=== PATIENT | female | born 1985 | race Caucasian/White ===

== ENCOUNTER 2018-04-14 02:48 | Inpatient (IN) | payer MEDICAID, SELFPAY ==
[2018-04-13 07:08] VITALS: BMI 43.7
[2018-04-13] MEDS: Lactated Ringers 1,000 ML 50 ML IV ×3 (07:36→22:15)
[2018-04-13 07:48] LABS: Hematocrit 33.2 % (37-47); Hemoglobin 10.7 g/dl (12.0-15.0); Mean Corp Hgb Conc 32.2 g/gl (32-36); Mean Corpuscular Hgb 25.1 pg (27.0-32.0); Mean Corpuscular Volume 77.8 fL (81-99); Mean Platelet Vol. 10.9 fl (6.2-12.0); Platelet Count 188 K/mm3 (150-450); RBC Distribution Width CV 14.6 % (11.6-14.6); RBC Distribution Width SD 39.7 fl (35.1-43.9); Red Blood Count 4.27 M/mm3 (4.2-5.4); White Blood Count 8.4 K/mm3 (4.4-11.0)
[2018-04-13] MEDS: Oxytocin 30 units/NS 500 ml 30 UNITS/500 ML IV.SOLN IV (07:50)
[2018-04-13 08:00] LABS: Scan Indicated on CBC? Y/N NO
[2018-04-13] MEDS: CLARIFY ORDER NOTE (08:31)
[2018-04-13] MEDS: 0.9% Normal Saline 100 ML IV.SOLN. INTRA-UTER (08:50)
--- NOTE | 2018-04-13 08:58 | PCM.HP.OB ---
- Problem List (1) Obesity complicating Status: Acute (2) Hyperthyroidism during Status: Acute (3) History of depression Status: Acute (4) Tobacco use during Status: Acute (5) Drug use affecting in first trimester Status: Acute (6) Encounter for induction of labor Status: Acute (7) Post-dates Status: Acute History Date of Admission: 04/13/18 Final KRISTIN: 04/08/18 Final KRISTIN Source: US <20 weeks Gestational age: 40 Weeks and 5 Days History of this : This is a 32 year-old, G [2], P [1001], at 40 weeks 5 days gestational age by 1st trimester U/S. Here today for elective IOL, postdates. Presented this morning without any contractions, no complaints. Medical Hx: Marijuana use at beginning of , no further use and negative 3rd trimester urine tox screen Smoker,Stopped smoking beginning of Hyperthyroidism-medication discontinued by endocrinology in early . Allergies No Known Allergies Allergy (Verified 04/13/18 08:29) Home Medications: Home Medications Vits96/Iron Fum/Folic [ Tablet] 04/13/18 Smoking Status: Former smoker Alcohol: None Substance Use Type: Marijuana - Marijuana use in early , stopped once she found out she was . No further use. Number of Fetus(es): 1 Heart Tracin, moderate variability, accels, no decels, Category 1 TOCO Analysis: No contractions History Past Pregnancies: Past Pregnancies Delivery Date Name GA/Weeks Outcome Route Weight Infant Gender Labor Length Anesthesia Delivery Location Provider FOB Labs: HIV negative HBsAG negative RPR negative GC/CT negative Urine tox screen positive on 03/22/18 negative GBS negative Rubella Immune A positive, antibody screen negative Expected Delivery Method: Spontaneous Vaginal Review of Systems Constitutional: Denies: Chills, Fever, Weight Change HEENT: Denies: Head Aches, Sinus Congestion, Sinus Drainage Cardiovascular: Denies: Chest Pain Respiratory: Denies: Cough, Shortness of breath at rest, Sputum production Gastrointestinal: Denies: Abdominal Pain, Nausea, Vomiting Genitourinary: Denies: Dysuria Neurological: Denies: Numbness, Tingling, Focal weakness Psychiatric: Denies: Anxiety, Depression, Homicidal Ideations, Suicidal Ideations Physical Exam General: Alert, Oriented x3 HEENT: Atraumatic, Normocephalic Cardiovascular: Regular rate, Regular Rhythm, No murmurs Lungs: Clear to auscultation, Normal air movement, No rhonchi, No wheeze Abdomen: Gravid Extremities:: Other - Edema +1 BLE, non pitting. Consistent with Neurological: Deep Tendon Reflexes 2+/4 and Symmetrical. Negative for: Clonus CREDIT PROFESSIONAL: Normal external genitalia. Negative for: Vulvar lesions Estimated gestational size: Appropriate for gestational size Presentation: Cephalic Cervix Dilation (cm): 1 Station: -2 Effacement (%): 60 - Taveras catheter placed and 30ml of NS instilled. Patient tolerated well. Assessment/Plan All Active Problems Obesity complicating (Acute) Hyperthyroidism during (Acute) History of depression (Acute) Tobacco use during (Acute) Drug use affecting in first trimester (Acute) Encounter for induction of labor (Acute) Post-dates (Acute) This is a 32 year-old, G [2], P [1001], at 40 weeks 5 Days gestational age for post dates elective IOL A:Postdates Obesity P: 1) Admit to L&D, routine orders. Start IV and labs ordered 2) Urine tox screen and socially responsible investment adviser consult placed. No use since beginning of . 3) Taveras bulb with pitocin for IOL 4) collaborative physician, informed of patient status Lanette Hair APRN, IVANA
--- NOTE | 2018-04-13 09:02 | HP.PCM_ITS ---
- Problem List (1) Obesity complicating Status: Acute (2) Hyperthyroidism during Status: Acute (3) History of depression Status: Acute (4) Tobacco use during Status: Acute (5) Drug use affecting in first trimester Status: Acute (6) Encounter for induction of labor Status: Acute (7) Post-dates Status: Acute History Date of Admission: 04/13/18 Final KRISTIN: 04/08/18 Final KRISTIN Source: US <20 weeks Gestational age: 40 Weeks and 5 Days History of this : This is a 32 year-old, G [2], P [1001], at 40 weeks 5 days gestational age by 1st trimester U/S. Here today for elective IOL, postdates. Presented this morning without any contractions, no complaints. Medical Hx: Marijuana use at beginning of , no further use and negative 3rd trimester urine tox screen Smoker,Stopped smoking beginning of Hyperthyroidism-medication discontinued by endocrinology in early . Allergies No Known Allergies Allergy (Verified 04/13/18 08:29) Home Medications: Home Medications Vits96/Iron Fum/Folic [ Tablet] 04/13/18 Smoking Status: Former smoker Alcohol: None Substance Use Type: Marijuana - Marijuana use in early , stopped once she found out she was . No further use. Number of Fetus(es): 1 Heart Tracin, moderate variability, accels, no decels, Category 1 TOCO Analysis: No contractions History Past Pregnancies: Past Pregnancies Delivery Date Name GA/Weeks Outcome Route Weight Infant Gender Labor Length Anesthesia Delivery Location Provider FOB Labs: HIV negative HBsAG negative RPR negative GC/CT negative Urine tox screen positive on 03/22/18 negative GBS negative Rubella Immune A positive, antibody screen negative Expected Delivery Method: Spontaneous Vaginal Review of Systems Constitutional: Denies: Chills, Fever, Weight Change HEENT: Denies: Head Aches, Sinus Congestion, Sinus Drainage Cardiovascular: Denies: Chest Pain Respiratory: Denies: Cough, Shortness of breath at rest, Sputum production Gastrointestinal: Denies: Abdominal Pain, Nausea, Vomiting Genitourinary: Denies: Dysuria Neurological: Denies: Numbness, Tingling, Focal weakness Psychiatric: Denies: Anxiety, Depression, Homicidal Ideations, Suicidal Ideations Physical Exam General: Alert, Oriented x3 HEENT: Atraumatic, Normocephalic Cardiovascular: Regular rate, Regular Rhythm, No murmurs Lungs: Clear to auscultation, Normal air movement, No rhonchi, No wheeze Abdomen: Gravid Extremities:: Other - Edema +1 BLE, non pitting. Consistent with Neurological: Deep Tendon Reflexes 2+/4 and Symmetrical. Negative for: Clonus SOCKET WELDER HELPER: Normal external genitalia. Negative for: Vulvar lesions Estimated gestational size: Appropriate for gestational size Presentation: Cephalic Cervix Dilation (cm): 1 Station: -2 Effacement (%): 60 - Taveras catheter placed and 30ml of NS instilled. Patient tolerated well. Assessment/Plan All Active Problems Obesity complicating (Acute) Hyperthyroidism during (Acute) History of depression (Acute) Tobacco use during (Acute) Drug use affecting in first trimester (Acute) Encounter for induction of labor (Acute) Post-dates (Acute) This is a 32 year-old, G [2], P [1001], at 40 weeks 5 Days gestational age for post dates elective IOL A:Postdates Obesity P: 1) Admit to L&D, routine orders. Start IV and labs ordered 2) Urine tox screen and child welfare social worker consult placed. No use since beginning of . 3) Taveras bulb with pitocin for IOL 4) collaborative physician, informed of patient status Lanette Hair APRN, IVANA
[2018-04-13] MEDS: Acetaminophen 325 MG Tablet PO ×2 (12:37→17:34)
--- NOTE | 2018-04-13 12:38 | PCM.PN.OB ---
Patient Problems: Active and Suspected Problems Obesity complicating (Acute) Hyperthyroidism during (Acute) History of depression (Acute) Tobacco use during (Acute) Drug use affecting in first trimester (Acute) Encounter for induction of labor (Acute) Post-dates (Acute) Subjective: Doing well and breathing well with contractions. Family at bedside. Resting in bed. Objective: FHR 145, moderate variability, accels, occasional variable decels, non repetitive, Category 2 FHT TOCO: q3-5 minutes, irregular, mild to palpation Cervix 3/70%/-2 IBOW, vertex. - Physical Exam Weight: 296 lb Body Mass Index (BMI) 43.7 Laboratory Tests Past 24 Hrs 04/13/18 04/13/18 07:36 07:36 WBC 8.4 RBC 4.27 Hgb 10.7 L Hct 33.2 L MCV 77.8 L MCH 25.1 L MCHC 32.2 RDW 14.6 RDW Differential 39.7 Plt Count 188 MPV 10.9 Blood Type A POSITIVE Antibody Screen NEGATIVE Medical Necessity - Tobacco Use Smoking Status: Former smoker Assessment/Plan All Active Problems Obesity complicating (Acute) Hyperthyroidism during (Acute) History of depression (Acute) Tobacco use during (Acute) Drug use affecting in first trimester (Acute) Encounter for induction of labor (Acute) Post-dates (Acute) A: Postdates Elective IOL, progressing Category 2 FHT P: 1) Coping well with contractions, beginning to feel uncomfortable. Category 2 FHT, continue to monitor. 2) Abdominal lifting and walcher's technique done, patient tolerated well. Up to peanut ball then to hands and knees for next positional changes. 3) Continue with Pitocin induction. 4) notified of patient status.
--- NOTE | 2018-04-13 12:43 | PN.OBGYN_ITS ---
Patient Problems: Active and Suspected Problems Obesity complicating (Acute) Hyperthyroidism during (Acute) History of depression (Acute) Tobacco use during (Acute) Drug use affecting in first trimester (Acute) Encounter for induction of labor (Acute) Post-dates (Acute) Subjective: Doing well and breathing well with contractions. Family at bedside. Resting in bed. Objective: FHR 145, moderate variability, accels, occasional variable decels, non repe titive, Category 2 FHT TOCO: q3-5 minutes, irregular, mild to palpation Cervix 3/70%/-2 IBOW, vertex. - Physical Exam Weight: 296 lb Body Mass Index (BMI) 43.7 Laboratory Tests Past 24 Hrs 04/13/18 04/13/18 07:36 07:36 WBC 8.4 RBC 4.27 Hgb 10.7 L Hct 33.2 L MCV 77.8 L MCH 25.1 L MCHC 32.2 RDW 14.6 RDW Differential 39.7 Plt Count 188 MPV 10.9 Blood Type A POSITIVE Antibody Screen NEGATIVE Medical Necessity - Tobacco Use Smoking Status: Former smoker Assessment/Plan All Active Problems Obesity complicating (Acute) Hyperthyroidism during (Acute) History of depression (Acute) Tobacco use during (Acute) Drug use affecting in first trimester (Acute) Encounter for induction of labor (Acute) Post-dates (Acute) A: Postdates Elective IOL, progressing Category 2 FHT P: 1) Coping well with contractions, beginning to feel uncomfortable. Category 2 FHT, continue to monitor. 2) Abdominal lifting and walcher's technique done, patient tolerated well. Up to peanut ball then to hands and knees for next positional changes. 3) Continue with Pitocin induction. 4) notified of patient status.
[2018-04-13 13:07] LABS: Amphetamine Urine VISTA NEGATIVE (<1000 ng/mL); Barbiturate Urine VISTA NEGATIVE (< 200 ng/mL); Benzodiazepine Urine VISTA NEGATIVE (< 200 ng/mL); Cocaine Urine VISTA NEGATIVE (< 300 ng/mL); Ecstacy Urine VISTA NEGATIVE (< 500 ng/mL); Methadone Urine VISTA NEGATIVE (< 300 ng/mL); PCP Urine VISTA NEGATIVE (< 25 ng/mL); THC Urine VISTA NEGATIVE (< 50 ng/mL); Vista UDS pH Range 5
--- NOTE | 2018-04-13 17:44 | PCM.PN.OB ---
Patient Problems: Active and Suspected Problems Obesity complicating (Acute) Hyperthyroidism during (Acute) History of depression (Acute) Tobacco use during (Acute) Drug use affecting in first trimester (Acute) Encounter for induction of labor (Acute) Post-dates (Acute) Subjective: Resting in bed, comfortable. Contractions spacing out, irregular. Family at bedside. Objective: FHT 145, moderate variability, accels, no decels, Category 1 TOCO: Irregular contractions, mild-moderate palpation. Coping well. Contractions started spacing out about 3 hours ago. Were every 3 minutes and now irregular. - Physical Exam Weight: 296 lb Body Mass Index (BMI) 43.7 Laboratory Tests Past 24 Hrs 04/13/18 04/13/18 04/13/18 07:36 07:36 12:30 WBC 8.4 RBC 4.27 Hgb 10.7 L Hct 33.2 L MCV 77.8 L MCH 25.1 L MCHC 32.2 RDW 14.6 RDW Differential 39.7 Plt Count 188 MPV 10.9 Urine Opiates Screen NEGATIVE Urine Methadone Screen NEGATIVE Ur Barbiturates Screen NEGATIVE Ur Phencyclidine Scrn NEGATIVE Ur Amphetamines Screen NEGATIVE U Methamphetamin-MDMA NEGATIVE U Benzodiazepines Scrn NEGATIVE Urine Cocaine Screen NEGATIVE U Cannabinoids Screen NEGATIVE Ur Drug Screen Comment Blood Type A POSITIVE Antibody Screen NEGATIVE Medical Necessity - Tobacco Use Smoking Status: Former smoker Assessment/Plan All Active Problems Obesity complicating (Acute) Hyperthyroidism during (Acute) History of depression (Acute) Tobacco use during (Acute) Drug use affecting in first trimester (Acute) Encounter for induction of labor (Acute) Post-dates (Acute) A:Postdates IOL, progressing Category 1 FHT P: 1) Continue with Pitocin IOL. Will give pitocin break for 20 minutes then restart at 10mu's 2) Positional changes. 3) Consider AROM in next hour.
[2018-04-14] MEDS: Ondansetron 4 MG/2 ML Vial IV (01:26)
[2018-04-14] MEDS: fentaNYL-bupivacaine (epidural) 100 ML BAG EPIDURAL (02:19)
[2018-04-14] MEDS: Oxytocin 30 units/NS 500 ml 30 UNITS/500 ML IV.SOLN 334 UNITS IV (02:30)
--- NOTE | 2018-04-14 02:54 | PCM.OB.VAG ---
- Problem List (1) Obesity complicating Status: Acute (2) Hyperthyroidism during Status: Acute (3) History of depression Status: Acute (4) Tobacco use during Status: Acute (5) Drug use affecting in first trimester Status: Acute (6) Encounter for induction of labor Status: Acute (7) Post-dates Status: Acute (8) Vaginal delivery Status: Acute (9) Shoulder dystocia, delivered Status: Acute (10) First degree perineal laceration during delivery Status: Acute Vaginal Delivery Maternal Presentation: Elective Induction Method of Induction: Pitocin, Taveras Bulb Amniotic Membrane Rupture Type: Spontaneous Amniotic Fluid Description: Lightly stained meconium Final KRISTIN: 04/08/18 Gestational age: 40 Weeks and 6 Days Date of Procedure: 04/14/18 Pre-Operative Diagnosis: Postdates Induction of Labor Post-Operative Diagnosis: Surgery/ Procedure Performed: Spontaneous Vaginal Delivery Type of Anesthesia: Epidural Description of Procedure: Progressed to complete and +2 station, epidural effective. Peds available for delivery due to meconium stained fluid. of viable female over 1st degree perineal laceration. APGARS 8,9. Delivery complicated by shoulder dystocia. head delivered and shoulders not forthcoming. McRobert's and suprapubic pressure applied. Attempted removal of posterior arm and forthcoming. Posterior arm sling with posterior arm extracted, baby forthcoming and delivered. Placed on maternal abdomen, weak cry and poor tone. Cord clamped and cut. Spontaneous cry, taken to radiant warmer to be attended by felt washing machine tender. Pitocin started for active 3rd stage management. Placenta delivered with expression via lauren, intact, 3 vessel cord. Perineum inspected and revealed 1st degree perineal laceration. Repaired under epidural analgesia and 3.0 vicryl. Well approximated and hemostasis achieved. Fundus firm, EBL 100ml. notified of patient status and delivery. Mom and baby stable, family bonding well. Planning to breastfeed. Presentation: Vertex Placental Delivery Description: Expressed Placenta Disposition: [facility] Cord Vessel Description: 3 Vessels Cord Gases drawn per routine: ABG, VBG Cord Entanglement: None Estimated Blood Loss: 100ml A gender: Female (1 minute): 8 (5 minute): 9 Episiotomy Description: None Laceration: Perineal Extension/lac, 1st degree Medications given after delivery: IV Pitocin Complications: None
[2018-04-14] MEDS: Oxytocin 30 units/NS 500 ml 30 UNITS/500 ML IV.SOLN 167 UNITS IV (03:00)
[2018-04-14] MEDS: 0.9% Saline Lock 10 ML Syringe IV (04:03)
[2018-04-14 05:00] VITALS: BP 123/60; PULSE 94; RESP 18; TEMP 36.4
[2018-04-14 09:15] VITALS: BP 132/77; PULSE 83; RESP 18; TEMP 36.2
--- NOTE | 2018-04-14 09:35 | CASEMGMT ---
ROXANNE met with patient, introduced self and role at [facility]. Patient was sitting up in bed and baby was sleeping in crib. Father of baby was sitting on couch in the room. Confirmed address and phone numbers. They have a good support system. They have all supplies needed. Patient has a 12 year old son from a previous relationship. She was working during . There are no transportation issues. She has a history of Depression. She has not been on medication for a couple of years. She feels she has been fine off medication. She went to counseling with her son years ago. No past involvement with [facility]. She said she smoked marijuana periodically prior to and once she found out she was she stopped. She denies any concerns with going home with baby. ROXANNE let RN know patient is ok for d/c. Plan: d/c home with baby. Nubia ANDERSEN MSW
[2018-04-14] MEDS: Ibuprofen 600 MG Tablet PO ×2 (12:19→18:18)
[2018-04-14 13:00] VITALS: BP 127/67; PULSE 86; RESP 20; TEMP 36.3
[2018-04-14 15:45] VITALS: BP 123/73; PULSE 92; RESP 18; TEMP 36.2
[2018-04-14 20:00] VITALS: BP 132/78; PULSE 83; RESP 16; TEMP 36.3
[2018-04-15] VITALS: BP 114/60; PULSE 81; RESP 16; TEMP 36.3
[2018-04-15 04:00] VITALS: BP 138/73; PULSE 92; RESP 16; TEMP 36
[2018-04-15 07:30] VITALS: BP 135/79; PULSE 82; RESP 18; TEMP 36
[2018-04-15] MEDS: Ibuprofen 600 MG Tablet PO (07:30)
--- NOTE | 2018-04-15 08:21 | PCM.PN.OB ---
Patient Problems: Active and Suspected Problems Obesity complicating (Acute) Hyperthyroidism during (Acute) History of depression (Acute) Tobacco use during (Acute) Drug use affecting in first trimester (Acute) Encounter for induction of labor (Acute) Post-dates (Acute) Vaginal delivery (Acute) Shoulder dystocia, delivered (Acute) First degree perineal laceration during delivery (Acute) Subjective: pt seen at bedside, doing well. pt reports good pain control. lochia mild. Breast feeding well. - Physical Exam General: Alert, Oriented x3 Abdomen: Soft, Non Tender, - - fundus firm Extremities: No Calf Tenderness Vital Signs Temp Pulse Resp BP 96.8 F L 92 16 138/73 H 04/15/18 04:00 04/15/18 04:00 04/15/18 04:00 04/15/18 04:00 Oxygen Delivery Method Room Air Weight: 134.263 kg Body Mass Index (BMI) 43.7 Intake and Output for Last 24 Hours 04/13/18 04/14/18 04/15/18 23:59 23:59 23:59 Intake Total 4000 / 4000 Output Total 1100 / 1100 Balance 2900 / 2900 Medical Necessity - Tobacco Use Smoking Status: Former smoker Assessment/Plan All Active Problems Obesity complicating (Acute) Hyperthyroidism during (Acute) History of depression (Acute) Tobacco use during (Acute) Drug use affecting in first trimester (Acute) Encounter for induction of labor (Acute) Post-dates (Acute) Vaginal delivery (Acute) Shoulder dystocia, delivered (Acute) First degree perineal laceration during delivery (Acute) PPD#1, doing well routine care pain mgmt [facility]
--- NOTE | 2018-04-15 08:24 | DCINST_ITS ---
Discharge Diet: No Restrictions Discharge Activity: Return to Normal Activity, May not drive while taking narcotic pain medications., May Shower May resume sexual activity in: 4-6 weeks Additional Activity Instructions:: Nothing in the vagina for 4-6 weeks. You may return to work/school in 6 weeks. Call your doctor if your incision/area has: Continuous Slow Oozing, Sudden Increased Bleeding, Increased Pain/ Swelling, Increased Redness, Foul Smelling Discharge Additional Instructions: If you experience any of the following, contact your healthcare provider. * Bleeding that soaks a pad every hour for 2 hours * Fever 100.4 or higher * Unrelieved incision or abdominal pain * Swelling, redness, discharge or bleeding from your incision or episiotomy site * Your incision begins to separate * Problems urinating (including inability to urinate or burning while urinating). * Visual changes * Severe headache * Flu-like symptoms * Pain or redness in one of both of your breasts * Pain, warmth, tenderness or swelling in your legs, especially the calf area * Frequent nausea and vomiting * Symptoms of depression or anxiety If you experience any of the following, call 911 or go to the nearest Emergency Room. * Chest pain * Problems breathing * Seizure activity * Partial or complete paralysis of a body part, slurred speech, weakness or drooping of the face, or a sudden inability to walk or hold your balance Allergies/Adverse Reactions: Allergies No Known Allergies Allergy (Verified 04/13/18 08:29) Medications to take at Discharge Vits96/Iron Fum/Folic [ Tablet] 04/13/18 Ibuprofen 600 mg PO 4X/DAY PRN PRN #30 tablet 04/15/18 The following prescriptions were given: Ibuprofen 600 mg PO 4X/DAY PRN PRN #30 tablet PRN Reason: Pain When: call to make an appointment with CNM or TOOL HARDENER in 1-2 weeks for routine follow up. We will see you at 6 weeks for your Post visit. Primary Care Physician: Care Physician,No Primary [Primary Care Provider] - Test Results: Test results from this visit will be discussed in further detail at your follow- up appointment, if applicable.
== END 2018-04-15 10:55 | disposition home or self-care (01) | DRG 560 ==
PROVIDERS: Admitting Provider Obstetrics & Gynecology; Referring Provider Obstetrics & Gynecology; Visit Provider Obstetrics & Gynecology
DX: O48.0 Post-term pregnancy (principal); O76 Abnormality in fetal heart rate and rhythm complicating labor and delivery; O66.0 Obstructed labor due to shoulder dystocia; O70.0 First degree perineal laceration during delivery; O99.284 Endocrine, nutritional and metabolic diseases complicating childbirth; E05.90 Thyrotoxicosis, unspecified without thyrotoxic crisis or storm; O99.214 Obesity complicating childbirth; Z68.41 Body mass index [BMI] 40.0-44.9, adult; Z87.891 Personal history of nicotine dependence; Z3A.40 40 weeks gestation of pregnancy; Z37.0 Single live birth
CPT/HCPCS: 59025; 59050; 80307; 85027; 86850; 86900; 99218; J7050; J7120; A4216; G0378; J2405